=== PATIENT | female | born 1970 ===

== ENCOUNTER → 2025-08-19 | Day surgery (SDC) | payer OTHER ==
[2025-08-17 14:50] VITALS: BP 122/81
[~2025-08-19] VITALS: Ht 170.2 cm; Wt 88.5 kg
[~2025-08-19] MED LIST: KETOROLAC TROMETHAMINE 30 MG VIAL IV ONE; POVIDONE-IODINE 118 ML BOTT TOP ONE
== END | disposition home or self-care (01) ==
LOC: ADM 08-17 12:15 → CIR.AMB 07:00
PROVIDERS: ATTEND Obstetrics & Gynecology
DX: D25.0 Submucous leiomyoma of uterus (principal); N95.0 Postmenopausal bleeding; N84.0 Polyp of corpus uteri